=== PATIENT | male | born 1990 | race Two or more races ===

== ENCOUNTER 2017-08-07 14:06 | Emergency (ER) | payer SELFPAY ==
--- NOTE | 2017-08-07 14:36 | Emergency Room Report ---
History of Present Illness General Chief Complaint: To Be Triaged Medical Decision Making ER Course Patient left before being seen Status: other Disposition: LEFT W/OUT BEING SEEN Condition: Unknown LOGAN NASCIMENTO D.O. Aug 07, 2017 14:36
== END 2017-08-07 14:20 | disposition left against medical advice (07) ==
LOC: EMR 14:20
DX: Z53.21 Procedure and treatment not carried out due to patient leaving prior to being seen by health care provider (principal)